=== PATIENT | female | born 1955 | race Caucasian/White ===

== ENCOUNTER → 2017-02-07 | Outpatient (CLI) | payer BC ==
--- NOTE | 2017-02-20 10:25 | Diagnostic Imaging Report ---
EXAM: DIG JASVIR BILAT SCREEN W CAD The current study was also evaluated with a Computer Aided Detection (CAD) system. INDICATION: Screening. COMPARISON: Multiple mammograms 12/27/2009 through 08/06/2014. DENSITY: Scattered areas of fibroglandular density. FINDINGS: No significant change. No mass, calcification or architectural distortion suspicious for malignancy in either breast. IMPRESSION: No mammographic findings suspicious for malignancy. RECOMMENDATION: Routine screening mammography in one year. BI-RADS category 1: Negative. ACR BI-RADS Category 1: Negative. Result letter will be mailed to the patient. Note: At least 10% of breast cancer is not imaged by mammography. Dictated by: Dictated on workstation # [id number]
== END ==
LOC: EDUNIT# 08:05 → RAD 08:05
PROVIDERS: ATTEND Family Medicine
DX: Z12.31 Encounter for screening mammogram for malignant neoplasm of breast (principal)